=== PATIENT | female | born 1955 | race African-American/Black ===

== ENCOUNTER 2018-06-07 17:58 | Inpatient (IN) | payer MEDICAID ==
[~2018-06-07] VITALS: Ht 160 cm; Wt 60.3 kg
[2018-06-07] MEDS ORDERED: HALOPERIDOL LACTATE 5MG/ML VIAL IM ONE (18:45)
[2018-06-07 19:20] LABS: HEMATOCRIT. 34.4 % (36.0-48.0); HEMOGLOBIN. 11.3 g/dL (12.0-16.0); MEAN CORPUSCULAR HEMOGLOBIN 28.4 pg (28.0-32.0); MEAN CORPUSCULAR VOLUME 86.3 fL (81.0-99.0); MEAN PLATELET VOLUME 8.2 fl (7.4-10.4); PLATELET 231 x1000/uL (130-400); RED BLOOD CELL COUNT 3.99 mill/uL (4.2-5.4)
[2018-06-07 19:23] LABS: CHLORIDE 110 mEq/L (98-107)
[2018-06-07 19:25] LABS: PROTHROMBIN TIME 10.1 sec (9.6-11.0)
[2018-06-07 19:27] LABS: ETHANOL BLOOD < 10 mg/dL
[2018-06-07 19:59] LABS: ATYPICAL LYMPHOCYTES 2; PLATELET ESTIMATE NORMAL
[2018-06-07 20:30] LABS: CLARITY URINE CLEAR (CLEAR); COLOR URINE YELLOW (YELLOW); KETONES URINE NEGATIVE (NEGATIVE); LEUKOCYTE ESTERASE URINE NEGATIVE (NEGATIVE); NITRITE URINE NEGATIVE (NEGATIVE); OCCULT BLOOD URINE NEGATIVE (NEGATIVE); PH URINE 5.5 (4.5-8.0); PROTEIN URINE NEGATIVE (NEGATIVE); SPECIFIC GRAVITY URINE 1.006 (1.005-1.030); UROBILINOGEN URINE 0.2 E.U./dL (0.2-1.0)
[2018-06-07 20:43] LABS: *AMPHETAMINES SCREEN URINE NEGATIVE (NEGATIVE); *BARBITURATES SCREEN URINE NEGATIVE (NEGATIVE); *BENZODIAZEPINES SCREEN URINE NEGATIVE (NEGATIVE); *COCAINE SCREEN URINE NEGATIVE (NEGATIVE); METHADONE URINE SCREEN NEGATIVE (NEGATIVE)
[2018-06-07 20:44] LABS: CANNABINOID URINE SCREEN NEGATIVE (NEGATIVE); OPIATES URINE SCREEN NEGATIVE (NEGATIVE); PHENCYCLIDINE URINE SCREEN NEGATIVE (NEGATIVE)
[2018-06-07] MEDS ORDERED: NA PHOS,M-B/NA PHOS,DI-BA ENEMA 118ML PR PRN (20:45)
[2018-06-07] MEDS ORDERED: NITROGLYCERIN 0.4MG TABLET SL SL PRN (20:45)
[2018-06-07] MEDS ORDERED: ZOLPIDEM TARTRATE 5MG TABLET PO PRN (20:45)
[2018-06-07] MEDS ORDERED: MAGNESIUM/ALUMINUM HYDROXIDE/SIMETHICONE 30ML UDC PO PRN (20:45)
[2018-06-07] MEDS ORDERED: ACETAMINOPHEN 325MG TABLET PO PRN (20:45)
[2018-06-07] MEDS ORDERED: GUAIFENESIN 200MG/10ML SUGAR FREE UDC PO PRN (20:45)
[2018-06-07] MEDS ORDERED: ONDANSETRON HCL 4MG/2ML INJ IV PRN (20:45)
[2018-06-07] MEDS ORDERED: CLONIDINE 0.1MG TABLET PO PRN (20:45)
[2018-06-07] MEDS ORDERED: DOCUSATE SODIUM 100MG CAPSULE PO PRN (20:45)
[2018-06-07] MEDS ORDERED: HALOPERIDOL LACTATE 5MG/ML VIAL IM PRN (20:45)
[2018-06-07] MEDS ORDERED: IPRATROPIUM/ALBUTEROL 0.5-3(2.5)MG/3ML NEB INH PRN (20:45)
[2018-06-07 21:35] LABS: T4 FREE 0.93 ng/dL (0.76-1.46)
[2018-06-07 22:02] LABS: VITAMIN B12 SERUM 641 pg/mL (211-911)
[2018-06-07 22:13] LABS: FOLIC ACID (FOLATE) SERUM > 20.00 ng/mL (>5.38)
[2018-06-07] MEDS ORDERED: SODIUM CHLORIDE 0.9% 1,000 ML IV SCH (22:35)
[2018-06-07 23:00] VITALS: BP 134/64
[2018-06-07 23:54] VITALS: BP 134/64
[2018-06-08] MEDS ORDERED: LEVOFLOXACIN 500MG PREMIX 100 ML IV SCH
[2018-06-08 04:00] VITALS: BP 130/63
[2018-06-08 08:00] VITALS: BP 112/59
[2018-06-08] MEDS ORDERED: ENOXAPARIN 40MG/0.4ML SYR SUBCUT SCH (08:00)
[2018-06-08] MEDS ORDERED: FAMOTIDINE 20MG TABLET PO SCH (09:00)
[2018-06-08 11:12] VITALS: BP 112/59
== END 2018-06-08 13:24 | disposition home or self-care (01) | DRG 812 ==
LOC: ER 17:58 → 7WST 20:34 → EDBEDREQ 20:39 → EDBEDREQTM 20:39 → ENRESERV 21:45
PROVIDERS: ADMIT Internal Medicine; ATTEND Internal Medicine
DX: T43.591A Poisoning by other antipsychotics and neuroleptics, accidental (unintentional), initial encounter (principal); G93.40 Encephalopathy, unspecified; D64.9 Anemia, unspecified; F03.90 Unspecified dementia, unspecified severity, without behavioral disturbance, psychotic disturbance, mood disturbance, and anxiety; J44.9 Chronic obstructive pulmonary disease, unspecified; Z88.6 Allergy status to analgesic agent; Y92.89 Other specified places as the place of occurrence of the external cause
CPT/HCPCS: 36415; 71045; 80061; 80305; 80320; 82607; 82746; 83036; 83540; 83550; 84439; 84443; 84484; 93005; 99285; C1893; J1630; J1650; J1956; G0480

== ENCOUNTER 2021-03-12 17:27 | Inpatient (IN) | payer MEDICAID ==
[~2021-03-12] VITALS: Ht 162.6 cm; Wt 56.0 kg
[2021-03-12 18:31] LABS: CHLORIDE 109 mEq/L (98-107)
[2021-03-12 18:32] LABS: BASOPHILS % 0.2 % (0.0-2.0); EOSINOPHILS % 0.3 % (0.0-5.0); HEMATOCRIT. 43.2 % (36.0-48.0); HEMOGLOBIN. 14.5 g/dL (12.0-16.0); LYMPHOCYTES % 19.9 % (20.0-50.0); MEAN CORPUSCULAR HEMOGLOBIN 27.7 pg (28.0-32.0); MEAN CORPUSCULAR VOLUME 82.7 fL (81.0-99.0); MEAN PLATELET VOLUME 9.3 fl (7.4-10.4); NEUTROPHILS % 73.6 % (40.0-76.0); PLATELET 144 x1000/uL (130-400); RED BLOOD CELL COUNT 5.23 mill/uL (4.2-5.4)
[2021-03-12 19:36] LABS: ETHANOL BLOOD 12 mg/dL
[2021-03-12] MEDS ORDERED: SODIUM CHLORIDE 0.9% 1000ML BAG (SEPSIS BOLUS) IV ONE (20:30)
[2021-03-12] MEDS ORDERED: PIPERACILLIN/TAZ 3.375G PREMIX 50 ML IV ONE (21:00)
[2021-03-12] MEDS ORDERED: VANCOMYCIN 1G PREMIX 200 ML IV ONE (21:00)
[2021-03-12] MEDS ORDERED: NOREPINEPHRINE 8MG/250ML PMX 250 ML IV ONE (21:15)
[2021-03-12] MEDS ORDERED: DIPHENHYDRAMINE 50MG/ML VIAL IV PRN (22:45)
[2021-03-12] MEDS: SODIUM CHLORIDE 0.9% 1,000 ML IV SCH (22:45)
[2021-03-12] MEDS ORDERED: ONDANSETRON HCL 4MG/2ML INJ IV PRN (22:45)
[2021-03-12] MEDS ORDERED: ACETAMINOPHEN 325MG TABLET PO PRN ×2 (22:45)
[2021-03-12] MEDS ORDERED: NOREPINEPHRINE 8 MG in DEXT 5% WATER 242 ML IV PRN (23:30)
[2021-03-13] MEDS: LEVOFLOXACIN 500MG PREMIX 100 ML IV SCH ×2 (01:08→23:43)
[2021-03-13 05:07] LABS: CHLORIDE 116 mEq/L (98-107)
[2021-03-13 05:13] LABS: PHOSPHORUS 2.5 mg/dL (2.5-4.9)
[2021-03-13 05:14] LABS: BASOPHILS % 0.1 % (0.0-2.0); EOSINOPHILS % 0.1 % (0.0-5.0); HEMOGLOBIN. 11.9 g/dL (12.0-16.0); MEAN CORPUSCULAR VOLUME 81.4 fL (81.0-99.0); MEAN PLATELET VOLUME 8.3 fl (7.4-10.4); MONOCYTES % 12.6 % (2.0-8.0); NEUTROPHILS % 77.2 % (40.0-76.0); PLATELET 155 x1000/uL (130-400); RED BLOOD CELL COUNT 4.42 mill/uL (4.2-5.4); RED CELL DISTRIBUTION WIDTH 17.1 % (11.6-14.6)
[2021-03-13] MEDS: FAMOTIDINE 20MG/2ML VIAL IV SCH ×2 (09:29→20:55)
[2021-03-13] MEDS: SODIUM CHLORIDE 0.9% 1,000 ML IV SCH (09:29)
[2021-03-13 10:11] LABS: CLARITY URINE TURBID (CLEAR); COLOR URINE YELLOW (YELLOW); KETONES URINE TRACE (NEGATIVE); LEUKOCYTE ESTERASE URINE 2+ (NEGATIVE); NITRITE URINE NEGATIVE (NEGATIVE); OCCULT BLOOD URINE 3+ (NEGATIVE); PROTEIN URINE 3+ (NEGATIVE); SPECIFIC GRAVITY URINE 1.021 (1.005-1.030); UROBILINOGEN URINE 0.2 E.U./dL (0.2-1.0)
[2021-03-13 10:22] LABS: METHADONE URINE SCREEN NEGATIVE (NEGATIVE); OPIATES URINE SCREEN PRESUMTIVE POSITIVE (NEGATIVE)
[2021-03-13 10:23] LABS: *AMPHETAMINES SCREEN URINE NEGATIVE (NEGATIVE); *BARBITURATES SCREEN URINE NEGATIVE (NEGATIVE); *BENZODIAZEPINES SCREEN URINE NEGATIVE (NEGATIVE); *COCAINE SCREEN URINE NEGATIVE (NEGATIVE); CANNABINOID URINE SCREEN NEGATIVE (NEGATIVE); PHENCYCLIDINE URINE SCREEN NEGATIVE (NEGATIVE)
[2021-03-13] MEDS ORDERED: MAGNESIUM 2 G PREMIX 50 ML IV ONE (12:00)
[2021-03-13 17:24] VITALS: BP 133/103
[2021-03-13] MEDS ORDERED: SODIUM CHLORIDE 0.9% 1,000 ML IV SCH (17:59)
[2021-03-13 18:00] VITALS: BP 121/54
[2021-03-13] MEDS ORDERED: IPRATROPIUM/ALBUTEROL 0.5-3(2.5)MG/3ML NEB HHN PRN (18:15)
[2021-03-13 18:16] VITALS: BP 121/54
[2021-03-13 20:00] VITALS: BP 124/67
[2021-03-13] MEDS: DEXT 5%/0.9% NACL 1,000 ML IV SCH (20:55)
[2021-03-13 22:00] VITALS: BP 143/67
[2021-03-14] VITALS (13 sets, daily range): BP systolic 91–162; BP diastolic 50–97
[2021-03-14] MEDS: DEXT 5%/0.9% NACL 1,000 ML IV SCH ×2 (05:58→16:30)
[2021-03-14] MEDS: FAMOTIDINE 20MG/2ML VIAL IV SCH ×2 (08:39→21:36)
[2021-03-14 10:08] LABS: HEMATOCRIT 36.4 % (36.0-48.0); HEMOGLOBIN 11.9 g/dL (12.0-16.0); MEAN CORPUSCULAR HEMOGLOBIN 26.9 pg (28.0-32.0); MEAN CORPUSCULAR VOLUME 82.3 fL (81.0-99.0); PLATELET 115 x1000/uL (130-400); RED BLOOD CELL COUNT 4.42 mill/uL (4.2-5.4); RED CELL DISTRIBUTION WIDTH 17.6 % (11.6-14.6)
[2021-03-14 10:20] LABS: CHLORIDE 120 mEq/L (98-107)
[2021-03-14] MEDS: ENOXAPARIN 30MG/0.3ML SYR SUBCUT SCH (21:36)
[2021-03-14] MEDS: LEVOFLOXACIN 500MG PREMIX 100 ML IV SCH (22:01)
[2021-03-15] VITALS (11 sets, daily range): BP systolic 96–159; BP diastolic 55–102
[2021-03-15] MEDS: DEXT 5%/0.9% NACL 1,000 ML IV SCH ×3 (01:35→21:44)
[2021-03-15] MEDS: FAMOTIDINE 20MG/2ML VIAL IV SCH ×2 (08:12→21:43)
[2021-03-15] MEDS ORDERED: LORAZEPAM 2MG/ML CPJ IV NR (20:30)
[2021-03-15] MEDS: LEVOFLOXACIN 500MG PREMIX 100 ML IV SCH (21:43)
[2021-03-15] MEDS: ENOXAPARIN 30MG/0.3ML SYR SUBCUT SCH (21:43)
[2021-03-16] VITALS (19 sets, daily range): BP systolic 99–165; BP diastolic 53–96
[2021-03-16] MEDS: DEXT 5%/0.9% NACL 1,000 ML IV SCH (09:13)
[2021-03-16] MEDS: FAMOTIDINE 20MG/2ML VIAL IV SCH (09:13)
[2021-03-16 11:19] LABS: HEMATOCRIT. 35.7 % (36.0-48.0); HEMOGLOBIN. 11.6 g/dL (12.0-16.0); MEAN CORPUSCULAR HEMOGLOBIN 26.8 pg (28.0-32.0); MEAN CORPUSCULAR VOLUME 82.4 fL (81.0-99.0); MEAN PLATELET VOLUME 9.4 fl (7.4-10.4); PLATELET 107 x1000/uL (130-400); RED BLOOD CELL COUNT 4.33 mill/uL (4.2-5.4); RED CELL DISTRIBUTION WIDTH 17.4 % (11.6-14.6)
[2021-03-16 11:42] LABS: CHLORIDE 115 mEq/L (98-107)
[2021-03-16 11:49] LABS: PHOSPHORUS 2.1 mg/dL (2.5-4.9)
[2021-03-16 17:40] LABS: PLATELET ESTIMATE DECREASED
[2021-03-16] MEDS: ENOXAPARIN 30MG/0.3ML SYR SUBCUT SCH (21:04)
[2021-03-16] MEDS: LEVOFLOXACIN 500MG PREMIX 100 ML IV SCH (21:04)
[2021-03-17 02:00] VITALS: BP 144/108
[2021-03-17 06:00] VITALS: BP 136/104
[2021-03-17 07:55] VITALS: BP 157/99
[2021-03-17 07:59] VITALS: BP 170/91
[2021-03-17 08:01] VITALS: BP 162/94
[2021-03-17 10:15] VITALS: BP 150/53
== END 2021-03-17 11:55 | disposition home or self-care (01) | DRG 720 ==
LOC: ER 17:27 → MICUSO 22:50 → 3WST 03-13 18:57
PROVIDERS: ADMIT Internal Medicine; ATTEND Internal Medicine
DX: A41.9 Sepsis, unspecified organism (principal); G93.41 Metabolic encephalopathy; E46 Unspecified protein-calorie malnutrition; G30.9 Alzheimer's disease, unspecified; L89.156 Pressure-induced deep tissue damage of sacral region; F02.80 Dementia in other diseases classified elsewhere, unspecified severity, without behavioral disturbance, psychotic disturbance, mood disturbance, and anxiety; J44.9 Chronic obstructive pulmonary disease, unspecified; F17.200 Nicotine dependence, unspecified, uncomplicated; N39.0 Urinary tract infection, site not specified; Z20.822 Contact with and (suspected) exposure to COVID-19; M47.9 Spondylosis, unspecified; M48.061 Spinal stenosis, lumbar region without neurogenic claudication; M48.02 Spinal stenosis, cervical region; Z88.6 Allergy status to analgesic agent; Z88.0 Allergy status to penicillin; Z82.49 Family history of ischemic heart disease and other diseases of the circulatory system; Z68.21 Body mass index [BMI] 21.0-21.9, adult
CPT/HCPCS: 36415; 70551; 71045; 72141; 72148; 80048; 80053; 80305; 80307; 80320; 80329; 81003; 82140; 82962; 83605; 83735; 84100; 84134; 84443; 84484; 85025; 85027; 87426; 92610; 93306; 97161; 99285; J1200; J1650; J1956; J2060; J2543; J3370; J3475; J3490; J7030; J7042; J7060; G0480